=== PATIENT | male | born 1965 | race Caucasian/White ===

== ENCOUNTER 2024-05-13 01:14 | Outpatient (CLI) | payer OTHER, SELFPAY ==
--- NOTE | 2024-05-13 06:30 | DI.RAD_ITS ---
Exam(s) XR LUMBAR SPINE COMP W FLEX/EX EXAM: XR LUMBAR SPINE COMP W FLEX/EX CLINICAL HISTORY: MECHANICAL LOW BACK PAIN,M54.59,M96.1,POSTLAMINECTOMY SYNDROME. TECHNIQUE: 2D digital imaging was performed. COMPARISON: MR MR SPINE LUMBAR WO CONT from 06/08/2023 MR MR SPINE LUMBAR WO CONT from 04/16/2024 FINDINGS: Five views No evidence of fracture. Some disc space narrowing at L4-5 and L3-4 levels noted. Anterior osseous lipping at these levels. Mild degenerative changes in the facet joints. There is mild degenerative anterolisthesis of L3 upon L4. No osseous lesions. IMPRESSION: Multilevel degenerative disc disease. Please note that prior outside MRI scans have revealed disc he rniations at L3-4 and L4-5 levels. DATA REPOSITORY: RADIATION DOSE DELIVERED:
== END 2024-05-13 01:34 ==
PROVIDERS: PCP Family Medicine; Visit Provider Anesthesiology Pain Medicine
DX: M96.1 Postlaminectomy syndrome, not elsewhere classified (principal); M54.59 Other low back pain
CPT/HCPCS: 72114

== ENCOUNTER 2024-06-10 11:53 | Outpatient (CLI) | payer OTHER, SELFPAY ==
[2024-06-10 12:04] VITALS: BP 150/88; PULSE 102; RESP 20; TEMP 36.6; O2SAT 100
[2024-06-10] MEDS: Nerve Block Tray 1 EACH MC (12:20)
--- NOTE | 2024-06-10 12:36 | PDOC.PAIN ---
Date of service: 06/10/24 Time of Service: 13:04 Pain Managment Procedure Note Procedure Note Procedure Note: Lumbar Transforaminal Epidural Steroid Injection ? Location: BILATERAL L4 ? Pre-procedure Diagnosis: M54.17-Radiculopathy, lumbosacral region M54.16 Radiculopathy, lumbar region ? Post-procedure Diagnosis:? The same as above ? Sedation:? none ? Estimated blood loss:? less than 2 cc ? Surgeon:? Ryan Palmer MD COMMENT: Patient has stenosis at L4-5 ? Procedure Detail:?? The procedure and potential risks were explained to the patient and informed written consent was obtained. The patient was escorted to the procedure room and placed in the prone position. Pillows were utilized for proper positioning and comfort. Time out was performed in the procedure room with nursing staff confirming the patient's identity, procedure to be performed, allergies, and any blood thinning or anti-platelet medications. The patient's lower back was prepped with ChloraPrep and draped in a sterile fashion. Sterile gloves were used, a face mask was worn, and new single dose vials of all medications were used with the top being swabbed with alcohol and given time to dry prior to withdrawal of medication. A right-sided oblique fluoroscopic view was obtained, with visualization of L4-5. Lidocaine 1% was used to anesthetize the skin. The tip of a 22-gauge, Quincke needle was advanced toward the 6 o'clock position of the superior pedicle at the target level.? It was advanced just under the pedicle to the neural foramen L4-5. Correct needle placement was confirmed through review of the fluoroscopy. Next, following negative aspiration, 1cc's of Omnipaque 240 contrast was injected under live fluoroscopy which showed good flow throughout the epidural space and no evidence of vascular flow or flow into adjacent compartments. Next, following negative aspiration, 15mg of preservative-free dexamethasone 40mg Depo-Medrol and 0.5ml of 0.5% bupivacaine was injected. The needle was gently removed.? The procedure was also performed in the same fashion at L4-5 on the Left.? The patient tolerated the procedure well.? Permanent images saved and recorded. Plan:? Follow up prn PAIN: PRE PROCEDURE 11/02 POST PROCEDURE 0 COMMENT: Patient also has some foraminal stenosis at the level below where he had his laminectomy as well as Modic 2 changes at at the L5-S1 level. Patient will follow-up in the office if he does not have significant relief to consider other options.
--- NOTE | 2024-06-10 13:00 | DI.RAD_ITS ---
Exam(s) XR PAIN CLINIC LUMBAR SP 2V EXAM: XR PAIN CLINIC LUMBAR SP 2V CLINICAL HISTORY: Dx: Lumbar Radiculopathy TECHNIQUE: 2D and realtime digital imaging was performed. CONTRAST MATERIAL: Refer to procedure report. COMPARISON: No exams were available for comparison FINDINGS: Fluoroscopy was provided for Dr. Palmer during the performance of a transforaminal epidural steroid injection. Please refer to the procedure report for complete details. Ka,r=18.5 mGy IMPRESSION: RADIATION DOSE DELIVERED: 0.0 0.0 0
[2024-06-10 13:09] VITALS: PULSE 71; O2SAT 96
[2024-06-10] MEDS: Bupivacaine 0.5% Pres-Free 10 ML VIAL IJ (13:10)
[2024-06-10] MEDS: Omnipaque 240 MG/ML 50 ML BTL IJ (13:11)
[2024-06-10] MEDS: methylPREDNISolone ACETATE 40 MG/ML VIAL IJ (13:11)
[2024-06-10] MEDS: Dexamethasone Sod. Phos./Pres-Free 10 MG/ML VIAL IJ (13:11)
== END 2024-06-10 11:54 | disposition home or self-care (01) ==
LOC: PC 11:53
PROVIDERS: PCP Family Medicine; Visit Provider Anesthesiology Pain Medicine
DX: M54.17 Radiculopathy, lumbosacral region (principal); M54.16 Radiculopathy, lumbar region
CPT/HCPCS: 00123; 64483; 72100; J0665; J1010; J1100; Q9967

== ENCOUNTER 2024-11-27 09:25 | Outpatient (CLI) | payer OTHER, SELFPAY ==
--- NOTE | 2024-11-27 06:00 | DI.RAD_ITS ---
Exam(s) XR PAIN CLINIC SACRIOILIAC 2V EXAM: XR PAIN CLINIC SACRIOILIAC 2V CLINICAL HISTORY: Dx: Sacroiliac Joint Dysfunction TECHNIQUE: 2D and realtime digital imaging was performed. CONTRAST MATERIAL: Refer to procedure report. COMPARISON: No exams were available for comparison FINDINGS: Fluoroscopy was provided for Dr. Sánchez during the performance of a bilateral sacroiliac joint injecti ons. Please refer to the procedure report for complete details. Ka,r=6.32 mGy IMPRESSION: RADIATION DOSE DELIVERED: 0.0 0.0 0
[2024-11-27 09:35] VITALS: BP 148/85; PULSE 93; RESP 18; TEMP 36; O2SAT 99
[2024-11-27 09:56] VITALS: PULSE 75; PULSE 76; RESP 13; O2SAT 97
[2024-11-27 09:57] VITALS: BP 163/104; PULSE 78; PULSE 84; RESP 11; O2SAT 96
[2024-11-27 10:00] VITALS: PULSE 90; PULSE 91; RESP 10; O2SAT 93
[2024-11-27 10:01] VITALS: BP 161/102; PULSE 79; PULSE 84; RESP 12; O2SAT 90
[2024-11-27 10:09] VITALS: BP 124/90; PULSE 76
[2024-11-27] MEDS: Omnipaque 240 MG/ML 50 ML BTL IJ (10:12)
[2024-11-27] MEDS: methylPREDNISolone ACETATE 80 MG/ML VIAL IJ (10:12)
[2024-11-27] MEDS: Nerve Block Tray 1 EACH MC (10:12)
--- NOTE | 2024-11-27 10:21 | PDOC.PAIN_ITS ---
Date of service: 11/27/24 Time of Service: 10:21 Pain Managment Procedure Note Procedure Note Procedure Note: PROCEDURE NOTE BILATERAL INTRA-ARTICULAR SACROILIAC JOINT INJECTION Date of Service: November 27, 2024 Patient: David Brian Provider: Tano Sánchez DO, MPH COMMENTS: I previously evaluated the patient in the office and their symptoms in relation to the sacroiliac joint pain have remained the same. He was previously seen by Dr. Palmer in our clinic and this procedure was recommended. No major changes since this visit with Dr. Palmer. Pre-operative diagnosis: Sacroiliac joint dysfunction ICD-10 M53.3 Post-operative diagnosis: Same Pre-procedure pain: VAS= 5/10 David Brian has been referred to our [facility] for a Bilateral intra-articular Sacroiliac joint injection. David was interviewed and the medical record reviewed. There were no medical, pharmacologic, radiographic or other structural contraindications to attempting a fluoroscopically-guided, contrast-enhanced, intra-articular Sacroiliac joint injection. The risks, benefits, and potential side effects of this procedure were reviewed with the patient. Questions and concerns were addressed. After it was clear that David was fully informed about the procedure, the printed consent form was signed by the patient and myself. David was placed in the prone position on the fluoroscopy table and an automated blood pressure cuff, 3 lead EKG, and pulse oximeter were applied. The skin entry point for approaching the Left sacroiliac joint was identified under the most advantageous fluoroscopic view and marked. Following thorough Chlorhexadine preparation of the skin and draping with sterile surgical drapes, 2 mls of 1% lidocaine was infiltrated into the skin at the entry point and the surrounding subcutaneous tissues. Next, a 3.5 22G spinal needle was placed under fluoroscopic guidance into the Left sacroiliac joint. Intra-articular placement was confirmed by a clear arthrogram resulting from the injection of 0.25ml of Omnipaque-240. Next, 1 ml of Depo- Medrol 40 mg/ml was injected intra- articularly with an initial reproduction of a significant component of the usual pain. This was followed with 1 ml of 1% Lidocaine. The needle was then removed without difficulty. (49 ml of Omnipaque-240 was wasted). The exact procedure was completed on the opposite sacroiliac joint. David's vital signs were stable throughout the procedure and were as recorded in nursing records. Follow up plans and appointments were discussed with David. Post procedure instructions were given as documented in nursing records. Having met discharge criteria, [facility] was [facility] from the [facility]. COMMENTS: Post-procedure pain: VAS= 0/10. If the patient receives at least 50% improvement in pain and/or function for at least 3 months, this procedure can be repeated if needed. I personally performed this entire procedure. TANO SÁNCHEZ DO, MPH ABPMR-subspecialty board certification in Pain Medicine [facility] Coding Conscious Sedation used for procedure: No CPT Codes: SI Joint Inj; incl Fluoro * BILATERAL* - [id number] ([id number]) Additional Codes: Date of Service (78109) Date of service: 11/27/24
== END 2024-11-27 09:26 | disposition home or self-care (01) ==
PROVIDERS: PCP Family Medicine; Visit Provider Preventive Medicine Occupational Medicine
DX: M53.3 Sacrococcygeal disorders, not elsewhere classified (principal)
CPT/HCPCS: 27096; 72200; J1010; Q9967